=== PATIENT | female | born 1935 | race Caucasian/White ===

== ENCOUNTER 2017-02-15 10:56 | Inpatient (IN) | payer OTHER ==
[2017-02-11 17:27] LABS: HEMOGLOBIN 13.2 g/dL (12.0-16.0)
[2017-02-11 17:44] LABS: BUN (BLOOD UREA NITROGEN) 10 MG/DL (6-23); CALCIUM, SERUM 9.2 MG/DL (8.5-10.4); CHLORIDE, SERUM 106 MMOL/L (96-112); CO2 (CARBON DIOXIDE) 32 MMOL/L (24-34); CREATININE 0.56 MG/DL (0.55-1.02); GFR AFRICAN AMERICAN 101 ML/MIN (>=60); GFR NON AFRICAN AMERICAN 87 ML/MIN (>=60); GLUCOSE, SERUM 86 MG/DL (60-99); SODIUM, SERUM 145 MMOL/L (135-148)
--- NOTE | ~2017-02-15 | OP ---
Record Of Operation [facility] [address] [place]. [address] NAME: VANESSA MATUTE JAdarsh : 34 STATUS : ADM IN PAT#: [id number] AGE: 81 ADM/REG DATE : 02/15/17 MR#: [id number] REPORT SERV DATE: 02/17/17 DICTATED BY: GIBSON CROCKER DATE: 02/16/17 REPORT STATUS : Draft TRANSCRIBED BY: MODL DATE: 02/16/17 DATE OF PROCEDURE: 02/15/2017 PREOPERATIVE DIAGNOSIS: Rectal carcinoma. POSTOPERATIVE DIAGNOSIS: Rectal carcinoma. PROCEDURE: Robotic total laparoscopic abdominoperineal resection. SURGEON: Virginia Crocker M.D. RESIDENT: Chepe Tripp M.D. ANESTHESIA: General. ESTIMATED BLOOD LOSS: 75 mL. INDICATION: Ms Matute is an 81-year-old female with a ductal carcinoma. Options were discussed with her including abdominoperineal resection versus proctectomy with coloanal and diverting ileostomy. The risks including, but not limited to bleeding, infection, heart or lung complications, damage to adjacent organs, including pelvic nodes with their subsequent results, heart and lung complications with her increased risk for pulmonary complications. Possible need for open operation, recuperation among others were discussed with her and consent was given. DESCRIPTION OF PROCEDURE: The patient was taken to the operating room and placed in supine position. General anesthesia was induced. Lower extremities were placed in stirrups and well padded. The abdomen and perineum were prepped and draped. A small incision was made in the right upper quadrant and Ct technique was utilized to place a 12 mm trocar. Insufflation was obtained to 15 mmHg pressure and 8 mm trocars x4 were placed across the mid abdomen at appropriate distance. The patient was then placed in Trendelenburg and tilted to the right and the Xi robot was docked in on the left side with: 1. Trocar, there was a grasper. 2. Fenestrated bipolar grasper. 3. The camera. 4. Scissors. The abdomen was explored and there was no evidence for metastasis. The inferior mesenteric vein was isolated and divided between clips, and the inferior mesenteric artery was identified, as well as the left ureter and the inferior mesenteric artery was divided between clips with 2 on the stay side. I then mobilized further medial to lateral, and then I mobilized the sigmoid recess and then dissected down into the pelvis using a total mesorectal nerve sparing technique; however, anteriorly there was some inflammatory response consistent with the area of the tumor, and therefore, wide anteriorly, but I did not get into the vagina. I continued on to the pelvic floor and then went through the levators just anterior to the coccyx. I then used bipolar cautery and scissors to divide the sigmoid Record Of Operation [facility] [id number] [place]. [address] NAME: VANESSA MATUTE : 34 STATUS : ADM IN PAT#: [id number] AGE: 81 ADM/REG DATE : 02/15/17 MR#: [id number] REPORT SERV DATE: 02/17/17 DICTATED BY: GIBSON CROCKER DATE: 02/16/17 REPORT STATUS : Draft TRANSCRIBED BY: HAY DATE: 02/16/17 mesentery and placed an endoscopic stapler across the junction of the descending and sigmoid colon. The anus had been sewn shut at the initiation of the operation and incision was made and carried into the subcutaneous tissue where I dissected from above and then cautery was utilized to dissect bilaterally and then the specimen was brought out posteriorly and the remainder of the dissection in the anterior plane was performed and the specimen was brought out. The specimen was intact and given to the pathologist to identify the margins. The pelvic floor was closed using 2-0 Vicryl and then also 3-0 Vicryl after obtaining hemostasis. The stoma site was made in the left upper quadrant just cephalad to where it had been managed by the stomal therapy nurse and [place] of skin was removed and a cruciate incision was made in the anterior-posterior rectus at the end of the colon brought out at that site. Then, the right upper quadrant site was closed at the fascia layer with 0 Vicryl, this was done after evacuating pneumoperitoneum after having checked for hemostasis. The other sites which were 8 mm the skin was closed with 3-0 Vicryl and these areas were isolated and the stoma was matured using a Caitlin technique and a 3-0 chromic stitches. The appliance was placed. The patient tolerated the procedure well. NYDIA/HAY Virginia Crocker M.D. / [id number] CC: Collette Vazquez M.D. Marcus Wagner, MD
--- NOTE | ~2017-02-15 | DS ---
Discharge Summary [facility] [address] [place]. [address] NAME: VANESSA MANCERA : 34 STATUS : DIS IN PAT#: [id number] AGE: 81 ADM/REG DATE : 02/15/17 MR#: [id number] REPORT SERV DATE: 03/03/17 DICTATED BY: GIBSON CROCKER DATE: 03/02/17 REPORT STATUS : Draft TRANSCRIBED BY: MODNabila DATE: 03/02/17 Data Collection from hospitalization DISCHARGE DIAGNOSES: 1. Rectal cancer. 2. Hypertension. 3. Sleep apnea. 4. Bronchiectasis. 5. Coronary artery disease. 6. Dyslipidemia. 7. Acid reflux. CONSULTATIONS: Diogo Teresa DO PROCEDURES PERFORMED: Robotic total laparoscopic abdominoperineal resection on 02/15/2017. PATHOLOGY: Rectosigmoid colon, segmental resection - residual invasive colonic adenocarcinoma, status post neoadjuvant therapy. MEDICATIONS: Aspirin 162 mg daily, Tenormin 25 mg every morning, Zithromax 250 mg every morning, Tums one tablet as needed, Citracal one tablet daily, vitamin D3 1000 units twice a day, vitamin B12 1000 mcg sublingually daily, Lomotil as instructed, fluorometholone 5 mL as instructed, glucosamine chondroitin one tablet twice a day, Combivent one puff via inhaler as needed, Prinivil 10 mg every morning, Imodium 2 mg as needed, Prilosec 40 mg every evening, Anoro Ellipta one inhalation every morning, and multivitamins every morning as instructed. CONDITION AT DISCHARGE: Stable. DISPOSITION: The patient was discharged home to be followed by home health care on a regular diet with activities as instructed. She would follow up with me on 03/04/2017. HOSPITAL COURSE: This is an 81-year-old female who has rectal carcinoma. Treatment options were discussed and it was elected to proceed with surgical intervention. She was admitted to the hospital at this time for further evaluation and treatment. Upon admission, she was taken to the operating room where she underwent the above-mentioned procedure. She tolerated this well, and there were no complications. On postop day #1, she had no new complaints. She said her bottom was sore. She was not taking her pain medication. ERAS protocol was in place. She was seen by Dr. Diogo Teresa. Her surgery had gone well and she does have some postoperative soreness and pain. She was not having any respiratory difficulty or chest pain. She had no cough. She does see Dr. Porter as an outpatient for bronchiectasis, which she said she got after having pneumonia. She is on outpatient Anoro as well as azithromycin and was doing well. She had requested this consult because she was afraid of getting pneumonia again. She is not on daytime oxygen, but she is on 3 to 4 liters/minute at the current time. CT scan of the chest in August of 2016 showed a tiny 3 mm nodule in the right upper lobe that had been stable with no other additional pulmonary nodules noted. There were no pleural effusions or fibrosis. The rest of the CT Discharge Summary [address] [address] NAME: VANESSA MANCERA : 34 STATUS : DIS IN PAT#: [id number] AGE: 81 ADM/REG DATE : 02/15/17 MR#: [id number] REPORT SERV DATE: 03/03/17 DICTATED BY: GIBSON CROCKER DATE: 03/02/17 REPORT STATUS : Draft TRANSCRIBED BY: HAY DATE: 03/02/17 scan of the chest, abdomen, and pelvis have shown presacral lymph node and no evidence of distant metastatic disease. He agreed with early mobilization and incentive spirometry and DVT prophylaxis. Chest x-ray was requested. Anoro and azithromycin were continued. She would be placed on DuoNeb as needed. On 02/18/2017, she was doing well. She was ambulatory. She was not eating much. Her abdomen was soft. Ensure was being given with meals. Over the next couple of days, discharge planning was performed. She underwent ostomy teaching. She said she felt comfortable. She was tolerating a regular diet. White count was 5.6. Discharge planning was performed. On 02/20/2017, discharge instructions were given. Due to her improved and stable condition, she was discharged home to be followed by home health care with the above-stated instructions. Information collected by: Amaris Mccauley I submit the above information as my discharge summary. ERNIE/HAY Virginia Crocker M.D. / [id number] CC: Collette Vazquez M.D.
--- NOTE | ~2017-02-15 | CN ---
Consultation Report [facility] [address] [place]. [address] NAME: VANESSA MANCERA : 34 STATUS : ADM IN PAT#: [id number] AGE: 81 ADM/REG DATE : 02/15/17 MR#: [id number] REPORT SERV DATE: 02/16/17 DICTATED BY: DIOGO TERESA DATE: 02/16/17 REPORT STATUS : Draft TRANSCRIBED BY: MODL DATE: 02/16/17 DATE OF CONSULTATION: HISTORY OF PRESENT ILLNESS: This 81-year-old white female admitted 02/15/2017, for an abdominoperineal resection of a rectal cancer by Dr. Joyner. The patient was diagnosed back on 08/20/2016 via biopsy showing adenocarcinoma and had subsequent neoadjuvant chemotherapy by Dr. Fajardo and Dr. Maldonado. She presented yesterday to have the resection done. Surgery went well, and she just had some postop soreness/pain. She is not having any respiratory difficulty or chest pain and no cough. She sees Dr. Porter as an outpatient for bronchiectasis which she states that she got after pneumonia. She is on outpatient Anoro as well as azithromycin and doing well. The patient requested the consult because she is afraid of getting pneumonia again. She is not on any daytime oxygen, but she is on 3 to 4 L/minute currently. REVIEW OF SYSTEMS: No fevers, chills, or sweats. No chest pain. Has a little bit of abdominal soreness. Does have an ostomy. No rashes or leg swelling or joint discomfort. PAST MEDICAL HISTORY: Rectal cancer, coronary artery disease, CABG [address] Contreras, dyslipidemia, hypertension, bronchiectasis, history of pneumonia, obstructive sleep apnea, intolerant of BiPAP, and acid reflux. ALLERGIES: PROCAINE AND ASPARTAME. OUTPATIENT MEDICATIONS: Reviewed. PAST SURGICAL HISTORY: Colonoscopy, CABG, and rectal cancer surgery as above. SOCIAL HISTORY: No tobacco, alcohol. The patient is . FAMILY HISTORY: Mother, heart attack. Siblings, lupus. LABORATORY DATA: Labs reviewed. DIAGNOSTIC DATA: Radiology films reviewed. She did have a CT scan of her chest back in 09/01/2016, showing a tiny 3 mm nodule in the right upper lobe that has been stable with no other additional pulmonary nodules noted. No pleural effusions or fibrosis. The rest of the CT of the chest, abdomen, and pelvis showed a presacral lymph node, and no evidence of distant metastatic disease. ASSESSMENT AND PLAN: 1. Hypoxia. 2. Atelectasis, suspected. 3. History of bronchiectasis. 4. Rectal cancer, status post, abdominoperineal resection, postop day #1. Consultation Report [facility] [address] [place]. [address] NAME: VANESSA MANCERA : 34 STATUS : ADM IN PAT#: [id number] AGE: 81 ADM/REG DATE : 02/15/17 MR#: [id number] REPORT SERV DATE: 02/16/17 DICTATED BY: DIOGO TERESA DATE: 02/16/17 REPORT STATUS : Draft TRANSCRIBED BY: HAY DATE: 02/16/17 I agree with early mobilization, incentive spirometry, and DVT prophylaxis. We will check a chest x-ray. Goal O2 saturation 92% to 94%. Continue Anoro and azithromycin. On DuoNeb as needed. We will follow. CEP/MODL Diogo Teresa DO / [id number] CC: Collette Vazquez M.D.
[~2017-02-15 10:56] MED LIST: ADVAIR250 INH; ANOROELLIPTA INH; ASAB PO; ATEN25 PO; BEN25 PO; CALTRA600D PO; CALTRAT600 PO; CITRACAL PO; COMBIVENT RESPIM4 GM INH; CRESTOR20 MG PO; FISH-EPA1000 MG PO; FLUCON1 PO; FML OPH SUSP5 ML OPH; GLUCCHONDR PO; IMOD PO; LIPITOR40 PO; LOM PO; Multivitamin Tab PO; NEXIUM40 PO; NIACIN FLUSH FREE PO; NIACIN TR1000 MG PO; PREDFORTE OPH; PRILOSEC40 MG PO; PRIN5 PO; PROVHFA INH; THERAPEUTIC PO; TUMSROLL PO; VITAMIN B-121000 MC1 SL; VITAMIN D1000 UNI1 PO; VITAMIN D31000 UNIT PO; ZITH250 PO
[2017-02-16 06:24] LABS: BASOPHILS 0 %; EOSINOPHILS 0 %; HEMOGLOBIN 11.3 g/dL (12.0-16.0); IMMATURE GRANULOCYTES 0.3 %; IMMATURE GRANULOCYTES ABSOLUTE 0.02 10/3/uL (0.0-0.11); LYMPHOCYTES 11.7 %; LYMPHOCYTES ABSOLUTE 0.71 10/3/uL (0.67-4.30); MEAN CORPUS HGB CONC 33.2 g/dL (32.0-36.0); MEAN PLATELET VOLUME 9.2 fL (9.2-13.0); MONOCYTES 6.8 %; MONOCYTES ABSOLUTE 0.41 10/3/uL (0.21-1.20); NEUTROPHILS 81.2 %; NEUTROPHILS ABSOLUTE 4.93 10/3/uL (2.02-8.40); PLATELET COUNT 176 10/3/uL (150-400); RBC DISTRIBUTION WIDTH 13.1 % (12.0-16.0); WHITE BLOOD CELLS 6.1 10/3/uL (4.5-10.5)
[2017-02-16 06:25] LABS: MANUAL DIFF NO %; MEAN CORPUSCULAR HEMOGLOB 34.5 pg (26.0-34.0); MEAN CORPUSCULAR VOLUME 103.7 fL (80-100); RED CELL COUNT 3.28 10/6/uL (4.0-5.6)
[2017-02-16 06:35] LABS: CALCIUM, SERUM 8.5 MG/DL (8.5-10.4); CHLORIDE, SERUM 107 MMOL/L (96-112); CO2 (CARBON DIOXIDE) 30 MMOL/L (24-34); CREATININE 0.53 MG/DL (0.55-1.02); GFR AFRICAN AMERICAN 102 ML/MIN (>=60); GFR NON AFRICAN AMERICAN 88 ML/MIN (>=60); SODIUM, SERUM 144 MMOL/L (135-148)
[2017-02-16 06:38] LABS: BUN (BLOOD UREA NITROGEN) 5 MG/DL (6-23); GLUCOSE, SERUM 124 MG/DL (60-99)
[2017-02-19 06:55] LABS: BASOPHILS 0.2 %; BASOPHILS ABSOLUTE 0.01 10/3/uL (0.0-0.16); EOSINOPHILS 4.1 %; EOSINOPHILS ABSOLUTE 0.23 10/3/uL (0.0-0.53); HEMATOCRIT 31.8 % (36.0-48.0); HEMOGLOBIN 10.7 g/dL (12.0-16.0); IMMATURE GRANULOCYTES 0.4 %; IMMATURE GRANULOCYTES ABSOLUTE 0.02 10/3/uL (0.0-0.11); LYMPHOCYTES 14.1 %; LYMPHOCYTES ABSOLUTE 0.79 10/3/uL (0.67-4.30); MANUAL DIFF NO %; MEAN CORPUS HGB CONC 33.6 g/dL (32.0-36.0); MEAN CORPUSCULAR HEMOGLOB 34.9 pg (26.0-34.0); MEAN CORPUSCULAR VOLUME 103.6 fL (80-100); MEAN PLATELET VOLUME 9.3 fL (9.2-13.0); MONOCYTES 6.8 %; MONOCYTES ABSOLUTE 0.38 10/3/uL (0.21-1.20); NEUTROPHILS 74.4 %; NEUTROPHILS ABSOLUTE 4.19 10/3/uL (2.02-8.40); PLATELET COUNT 189 10/3/uL (150-400); RBC DISTRIBUTION WIDTH 13.5 % (12.0-16.0); RED CELL COUNT 3.07 10/6/uL (4.0-5.6); WHITE BLOOD CELLS 5.6 10/3/uL (4.5-10.5)
[2017-02-19 07:05] LABS: CHLORIDE, SERUM 104 MMOL/L (96-112); CO2 (CARBON DIOXIDE) 29 MMOL/L (24-34); CREATININE 0.47 MG/DL (0.55-1.02); GFR AFRICAN AMERICAN 107 ML/MIN (>=60); GFR NON AFRICAN AMERICAN 92 ML/MIN (>=60); GLUCOSE, SERUM 114 MG/DL (60-99); POTASSIUM, SERUM 3.7 MMOL/L (3.5-5.3); SODIUM, SERUM 142 MMOL/L (135-148)
[2017-02-19 07:06] LABS: BUN (BLOOD UREA NITROGEN) 10 MG/DL (6-23)
== END 2017-02-20 15:52 | disposition home or self-care (01) | DRG 330 ==
LOC: SDC/OF 10:56 → PACU 18:49 → 5SO 21:14
PROVIDERS: Colon & Rectal Surgery
PROC: 0DBN4ZZ Excision of Sigmoid Colon, Percutaneous Endoscopic Approach (ICD-10-PCS; 2017-02-15)
PROC: 0DBQ3ZZ Excision of Anus, Percutaneous Approach (ICD-10-PCS; 2017-02-15)
PROC: 0D1N474 Bypass Sigmoid Colon to Cutaneous with Autologous Tissue Substitute, Percutaneous Endoscopic Approach (ICD-10-PCS; 2017-02-15)
PROC: 8E0W4CZ Robotic Assisted Procedure of Trunk Region, Percutaneous Endoscopic Approach (ICD-10-PCS; 2017-02-15)
PROC: 0DTP4ZZ Resection of Rectum, Percutaneous Endoscopic Approach (ICD-10-PCS; principal; 2017-02-15 12:00)
DX: C20 Malignant neoplasm of rectum (principal); J98.11 Atelectasis; Z95.1 Presence of aortocoronary bypass graft; K92.1 Melena; F22 Delusional disorders; I25.10 Atherosclerotic heart disease of native coronary artery without angina pectoris; K44.9 Diaphragmatic hernia without obstruction or gangrene; Z88.8 Allergy status to other drugs, medicaments and biological substances; Z79.82 Long term (current) use of aspirin; Z79.899 Other long term (current) drug therapy; I10 Essential (primary) hypertension; Z82.49 Family history of ischemic heart disease and other diseases of the circulatory system
CPT/HCPCS: 71010; 80048; 85014; 85018; 85025; 88309; 88341; 88342; 93005; 94640; A9270-GY; J0690; J2250; J2405; J2710; J2795; J3010; P9045

== ENCOUNTER 2017-03-03 13:25 | Inpatient (IN) | payer OTHER ==
--- NOTE | ~2017-03-03 | DS ---
Discharge Summary [facility] [address] [place]. [address] NAME: VANESSA MANCERA : 34 STATUS : DIS IN PAT#: [id number] AGE: 81 ADM/REG DATE : 03/03/17 MR#: [id number] REPORT SERV DATE: 03/19/17 DICTATED BY: GIBSON CROCKER DATE: 03/18/17 REPORT STATUS : Draft TRANSCRIBED BY: HAY DATE: 03/18/17 Data Collection from hospitalization DISCHARGE DIAGNOSES: 1. History of abdominoperineal resection. 2. Pneumonia. 3. Respiratory failure. 4. Hypertension. 5. History of colon cancer. 6. Coronary artery disease. 7. Large hiatal hernia. 8. Symptomatic gastroesophageal reflux. 9. Enterococcus faecalis urinary tract infection. 10.Obstructive sleep apnea. CONSULTATIONS: 1. Fredy Tariq M.D. 2. Thuan Porter M.D. 3. [place] De Leon. PROCEDURES PERFORMED: None. DISPOSITION: [facility]. HOSPITAL COURSE: This was an 81-year-old female who had undergone abdominoperineal resection two weeks prior to this admission. She was doing well until approximately five days prior to admission at which time, she began to have increased weakness, decreased appetite, and eventually developed nausea and vomiting. On Wednesday and Wednesday prior to admission, she had intravenous fluids and correction of electrolytes as an outpatient. She continued to have weakness and complained of some vomiting on the morning of this admission as well as burping. She also had some dark brown emesis and said that she had decreased output, although she continued to have air in the stoma bag with somewhat more clear fluid. She did not feel particularly bloated and did not feel like she was very short of breath, although she was getting weaker and had difficulty walking without help. She was admitted to the hospital at this time for further evaluation and treatment. Upon admission, it was felt that she may have an element of heart failure. She was felt to be dehydrated. The following day, she had no nausea or vomiting. She did complain of some back pain. There was air in her appliance. Urinalysis had revealed a urinary tract infection. Her diet was going to be advanced. Antibiotics were started. She was evaluated by Physical Therapy. On 03/05/2017, her wheezing had increased. White blood cell count was 16. She was afebrile. She did have wheezing in both lungs. On 03/06/2017, she did not have much oral intake. We encouraged her to use incentive spirometry. She was seen by Dr. Fredy Tariq regarding shortness of breath. The patient was felt to have hypoxic respiratory failure. She was felt to be volume overloaded without congestive heart failure. IV fluids were discontinued. The patient was on extended infusion of Zosyn, which provides a lot of volume as well. The Enterococcus was sensitive to amoxicillin and she was changed to oral amoxicillin three times a day. Zosyn was discontinued. Procalcitonin level was Discharge Summary [address] [place]. [address] NAME: VANESSA MANCERA : 34 STATUS : DIS IN PAT#: [id number] AGE: 81 ADM/REG DATE : 03/03/17 MR#: [id number] REPORT SERV DATE: 03/19/17 DICTATED BY: GIBSON CROCKER DATE: 03/18/17 REPORT STATUS : Draft TRANSCRIBED BY: AHY DATE: 03/18/17 going to be checked as well as ABGs and portable chest x-ray. Routine labs would again be performed the following morning. She was going to be started on DuoNebs with EzPAP. She was started on Pulmicort with EzPAP. Routine BNP would be checked. We would wean O2 to keep saturation greater than 92%. A dose of IV Lasix was given. On 03/07/2017, she still had some wheezing. We encouraged her to mobilize. She was seen by Dr. Thuan Porter. She was well known to his practice. She was followed in the office for her chronic obstructive pulmonary disease associated with bronchiectasis. She recently had extensive resection of a colorectal adenocarcinoma. She did well and went home, but had developed worsening nausea, vomiting, and then became dehydrated. She had started having more dyspnea, coughing, and chest congestion. She had no substernal chest pain and has not had much sputum production. She was felt to have acute worsening of bronchiectasis. She was given a dose of systemic steroids. We were going to try her on flutter valve. Lisinopril was held. On 03/08/2017, she did not tolerate BiPAP well during the night. She still had a weak rattling cough. Chest x-ray showed increased left-sided infiltrate. Urine had been positive for Enterococcus. She was now on Vapotherm. The patient was a DNR code status. She was seen by Cheryl Benson regarding acute kidney injury. She had developed worsening shortness of breath, which had progressed. It was felt that she probably had aspirated and had aspiration pneumonia. She had gotten progressively more hypoxic over the last 24 hours. She had also developed some hypotension and now had significant decreased urine output and creatinine had risen to 1.4. She still had significant respiratory distress. Her bilateral pneumonia was actually worse on the left than the right. She was felt to have acute kidney injury and was now oliguric. The acute kidney injury was felt to be in the setting of acute hypoxic respiratory failure and hypotension. It was suspected that this was ATN as she was now oliguric. Bladder scan was negative. We were going to give her diuretic challenge. The patient was a DNR code status and the patient's family felt she was too weak for renal replacement therapy at this time and we agreed on this. We would reassess urine output and labs the following morning and expected kidney function to worsen. Urine studies would be obtained. The next day, her breathing was labored. She had coarse breath sounds bilaterally. White blood cell count was 10,000. Creatinine was 1.2. She did have some increased work of breathing. She did have some emesis during the night. Chest x-ray showed worsening infiltrates. Her respiratory status continued to worsen. In the animal sticker hours of 03/10/2017, she was found without blood pressure, pulse, or respirations. She was pronounced at 6:50 a.m. and released to the above-mentioned home. Information collected by: Amaris Mccauley I submit the above information as my discharge summary. ERNIE/MODL Virginia Crocker M.D. / [id number] CC: Discharge Summary [address] [address] NAME: VANESSA MANCERA0 : 34 STATUS : DIS IN PAT#: [id number] AGE: 81 ADM/REG DATE : 03/03/17 MR#: [id number] REPORT SERV DATE: 03/19/17 DICTATED BY: GIBSON CROCKER DATE: 03/18/17 REPORT STATUS : Draft TRANSCRIBED BY: HAY DATE: 03/18/17 Collette Vazquez M.D. Jessica Craig, FNP
--- NOTE | ~2017-03-03 | CN ---
Consultation Report [facility] [address] [place]. [address] NAME: VANESSA MANCERA : 34 STATUS : ADM IN PAT#: [id number] AGE: 81 ADM/REG DATE : 03/03/17 MR#: [id number] REPORT SERV DATE: 03/06/17 DICTATED BY: FREDY TARIQ DATE: 03/06/17 REPORT STATUS : Draft TRANSCRIBED BY: MODL DATE: 03/06/17 DATE OF CONSULTATION: 03/06/2017 REASON FOR CONSULTATION: Shortness of breath. IMPRESSION: 1. Hypoxic respiratory failure. 2. Volume overload without congestive heart failure. 3. Enterococcus faecalis urinary tract infection. 4. History of bronchiectasis. 5. Hypertension. 6. Coronary artery disease. 7. Colon cancer, status post chemoradiation and now surgery with a colostomy. 8. Large hiatal hernia with symptomatic gastroesophageal reflux. PLAN: We will discontinue IV fluids at this time. This patient is on extended infusion of Zosyn which provides a lot of volume as well. Since the Enterococcus is sensitive to amoxicillin, we will change to p.o. amoxicillin three times daily and discontinue Zosyn. We will obtain a stat portable chest x-ray. Check a stat ABG. Check Procalcitonin level on blood in the lab today. We will check routine labs again in the morning. Start the patient on DuoNebs every four hours with EzPAP. Start the patient on Pulmicort one neb twice daily with EzPAP. We will check a routine BNP on blood in the lab. Wean O2 to keep saturation greater than 92%. Give Lasix 40 mg tab one dose IV x1. We thank you for this consultation and we will continue to follow with you BRIEF HISTORY OF PRESENT ILLNESS: The patient is an 81-year-old white female, who is admitted to the Colorectal Surgery Service for what appears to be colon cancer. The patient underwent a laparoscopic-assisted resection of the rectal carcinoma, abdominal peritoneal resection with a colostomy. This patient did well postoperatively. Her colostomy now is functional. This patient is tolerating a diet, but she has had persistent shortness of breath. She is not wheezing. She has a cough that is nonproductive. She denies any fever, chills, nausea, or vomiting. She denies any chest pain. Medicine Service was asked to see this patient because the patient was requiring high amounts of oxygen as much as 5 L. This patient reports that she has a severe sleep apnea and is unable to tolerate CPAP. She wears normally 2 L of oxygen at night only. REVIEW OF SYSTEMS: Otherwise negative. PAST MEDICAL HISTORY: Significant and extensive for rectal cancer, coronary artery disease, dyslipidemia, hypertension, bronchiectasis, history of pneumonia, severe obstructive sleep apnea, intolerant to BiPAP or CPAP, and gastroesophageal reflux. PAST SURGICAL HISTORY: Significant for CABG in 2005, cataract surgery, bilateral corneal transplant. Consultation Report [place] [id number] [facility] [place]. [address] NAME: VANESSA MANCERA : 34 STATUS : ADM IN PAT#: [id number] AGE: 81 ADM/REG DATE : 03/03/17 MR#: [id number] REPORT SERV DATE: 03/06/17 DICTATED BY: FREDY TARIQ DATE: 03/06/17 REPORT STATUS : Draft TRANSCRIBED BY: HAY DATE: 03/06/17 ALLERGIES: TO PROCAINE, ASPARTAME, AND PRAVASTATIN. HOME MEDICATIONS: DuoNebs one neb every four hours, aspirin 162 mg once daily, Tenormin 25 mg once daily, azithromycin 250 mg daily for prophylaxis of pneumonia, Os-Blaise 500 mg twice daily, vitamin D 1000 units once daily, fluorometholone suspension every 48 hours in the eyes, glucosamine, [place] 5/325 one to two tablets every four hours, lisinopril 10 mg once daily, Centrum multivitamins, Prilosec 40 mg at breakfast, Zofran 8 mg every four hours p.r.n., Anoro Ellipta one inhalation once daily, vitamin B12. SOCIAL HISTORY: This patient denies use of alcohol, tobacco, or illicit substances. Was fully functional in all ADLs prior to this surgery. FAMILY HISTORY: Mother, heart attacks. One sibling with lupus. PHYSICAL EXAMINATION: GENERAL: White female, lying on the bed, appears to be in moderate respiratory distress. She is awake, alert, and oriented, but she does fall asleep in between conversations and is unable to complete sentences because of her shortness of breath. VITAL SIGNS: Blood pressure is 98/49, O2 saturation is 99% on 6 L. pulse is 96. Temp is 98.4. HEENT: Head is normocephalic, atraumatic. Pupils are equal, round, and reactive to light. Extraocular muscles are intact. Sclerae are anicteric. Conjunctivae normal. Oropharynx without lesion. Tongue protrusion is midline. Uvula is midline. NECK: Supple. No evidence of jugular venous distention. No carotid bruits or thyromegaly is appreciated. No lymphadenopathy in the neck is palpable. HEART: Distant. Tachycardic. 2/6 soft systolic murmur, best heard second intercostal space, left parasternal border. PMI nondisplaced. LUNGS: Diffuse crackles with rhonchis, wheezing, worse with expiration. No evidence of any focal consolidation. ABDOMEN: Colostomy in place. Liquid stool in the bag. Bowel sounds are present. Surgical wounds are clean and dry. Slight bruising is noted on the abdomen from what appears to be injections of anticoagulation for DVT prophylaxis. EXTREMITIES: Without cyanosis, clubbing, or edema. NEUROLOGICAL: Seems to be grossly intact. LABORATORY DATA: Most recent labs, electrolytes are completely normal. BUN is 45 creatinine is 0.71, glucose was 156. Her BNP was done on 03/03/2017 and it was 57. Her white count is 15.9, her hemoglobin is 10.3, her hematocrit is 37, platelet count is 486,000. There is no left shift. Urinalysis and urine culture positive for Enterococcus faecalis sensitive to penicillin. Portable chest x-ray has been ordered. There was a PA and a lateral chest x- ray done yesterday showing blunting of the costophrenic angles consistent with subsegmental basilar atelectasis versus small effusions. Once again, we thank you for this consultation and we will follow the patient with you. Consultation Report [place] [id number] [facility] [place]. [address] NAME: VANESSA MANCERA0 : 34 STATUS : ADM IN [facility]#: [id number] AGE: 81 ADM/REG DATE : 03/03/17 MR#: [id number] REPORT SERV DATE: 03/06/17 DICTATED BY: FREDY TARIQ DATE: 03/06/17 REPORT STATUS : Draft TRANSCRIBED BY: HAY DATE: 03/06/17 SV/HAY Fredy Tariq M.D. / [id number] CC: Virginia Joyner M.D.
--- NOTE | ~2017-03-03 | CN ---
Consultation Report [facility] [address] [place]. [address] NAME: VANESSA MATUTE : 34 STATUS : ADM IN PAT#: [id number] AGE: 81 ADM/REG DATE : 03/03/17 MR#: [id number] REPORT SERV DATE: 03/08/17 DICTATED BY: DATE: REPORT STATUS : Draft TRANSCRIBED BY: MODL DATE: 03/08/17 CONSULTATION DATE OF CONSULTATION: REASON FOR CONSULTATION: Acute kidney injury. CONSULTING PHYSICIAN: Dr. Tariq. HISTORY OF PRESENT ILLNESS: Ms. Matute is an 81-year-old white female with a history of colon cancer. She had surgery late last month and colostomy. She presented back to the hospital with abdominal pain, nausea, treated for UTI, antibiotics, and her creatinine has been normal around 0.5 to 0.7 during the early part of her admission. Yesterday, she developed worsening shortness of breath. It has progressed. It is now felt that she probably has aspirated and has aspiration pneumonia. She has gotten progressively more hypoxic over the last 24 hours. She has also developed some hypotension as well and now has significant decreased urine output and creatinine is up to 1.4. We have been asked to see her. She still has significant respiratory distress. PAST MEDICAL HISTORY: COPD, bronchiectasis, colorectal cancer, adenocarcinoma, colostomy, reflux, obstructive sleep apnea, coronary artery disease, status post bypass. SOCIAL HISTORY: No tobacco, alcohol, or illicit drug use. FAMILY MEDICAL HISTORY: Cannot obtain from patient given her current respiratory distress. ALLERGIES: PROCAINE, ASPARTAME, AND PRAVASTATIN. MEDICATIONS: At time of consultation: Amoxicillin, Tenormin, Zithromax, glucosamine, heparin, Protonix, and Anoro Ellipta. REVIEW OF SYSTEMS: Unable to obtain from patient given her current respiratory status. PHYSICAL EXAMINATION: VITAL SIGNS: Temp 98.3, blood pressure 117/53, pulse 100, respiratory rate 30, O2 saturation 93% on Vapotherm. GENERAL: This is an ill-appearing, elderly white female. She will open her eyes and say a few words. Otherwise, minimally responsive. HEENT: Normocephalic, atraumatic. Conjunctivae clear. Sclerae anicteric. Pupils are equal and round. Oral mucosa is extremely dry. She has brown matter in her mouth. RESPIRATIONS: Slightly labored. She has rhonchi noted throughout. HEART: Rate is regular, but increased. ABDOMEN: Soft. She has colostomy to left side of the abdomen with brown stool. Consultation Report [place] [id number] [place]. [id number] NAME: VANSESA MATUTE : 34 STATUS : ADM IN PAT#: [id number] AGE: 81 ADM/REG DATE : 03/03/17 MR#: [id number] REPORT SERV DATE: 03/08/17 DICTATED BY: DATE: REPORT STATUS : Draft TRANSCRIBED BY: MODL DATE: 03/08/17 EXTREMITIES: No edema. SKIN: Dry, scaly. No unusual rash or skin lesions. NEURO: No focal deficits. Mood and affect flat. PERTINENT LABS AND X-RAYS: Procalcitonin 1, sodium 145, potassium 3.3, chloride 111, CO2 of 21, BUN of 81, creatinine 1.4, calcium 7.7, albumin of 2.1. WBCs 8.7, H and H are 8 and 25, platelets 340,000. Her chest x-ray, she has what is supposed to be bilateral pneumonia, but actually the left worse than the right. IMPRESSION: 1. Acute kidney injury, now oliguric. 2. Acute respiratory failure. 3. Hypotension. 4. Urinary tract infection. 5. Aspiration pneumonia. 6. Colon cancer with colostomy. PLAN/RECOMMENDATION: Acute kidney injury in the setting of acute hypoxic respiratory failure and hypotension. Suspect this is ATN as she is now oliguric. Bladder scan is negative. We will give her diuretic challenge. Discussed with the patient's daughter, she is a DNR and they feel she is too weak for renal replacement therapy at this time and I agree. We will reassess urine output and labs in a.m. and expect kidney function to worsen. We will check urine studies. Follow urine output and follow along with you. Thank you for the consultation. EITAN ALEXANDRIA De Leon / [id number]
--- NOTE | ~2017-03-03 | CN ---
Consultation Report [facility] [address] [place]. [address] NAME: VANESSA MATUTE J0 : 34 STATUS : ADM IN PAT#: [id number] AGE: 81 ADM/REG DATE : 03/03/17 MR#: [id number] REPORT SERV DATE: 03/07/17 DICTATED BY: ALEJANDRINA PORTER DATE: 03/07/17 REPORT STATUS : Draft TRANSCRIBED BY: MODL DATE: 03/07/17 DATE OF CONSULTATION: Thank you for the opportunity to consult on this patient. HISTORY OF PRESENT ILLNESS: Ms. Matute is well known to our practice. I follow her in the office for her chronic obstructive lung disease associated with bronchiectasis. She had recently had extensive resection of a colorectal adenocarcinoma. She did well, went home, but had developed some worsening nausea, vomiting and became dehydrated. She was admitted for treatment of her dehydration and has done fairly well, but has started having more dyspnea, coughing, and chest congestion. She has had no substernal chest pain and has not had much sputum production. PAST MEDICAL HISTORY: Significant for bronchiectasis with quite significant chronic obstructive lung disease. SOCIAL HISTORY: Negative for tobacco abuse. FAMILY HISTORY: Noncontributory to this acute presentation. REVIEW OF SYSTEMS: Review of 10 systems was performed and is positive for what was noted above. PHYSICAL EXAMINATION: GENERAL: She is awake and alert with quite significant audible rhonchi. NECK: Supple with no lymphadenopathy and no JVD. CHEST: Symmetric with good expansion bilaterally. LUNGS: Have bilateral rhonchi, but no clear wheezing. CARDIOVASCULAR: She has S1 and S2, which are regular rate and rhythm. ABDOMEN: Benign. EXTREMITIES: She has no edema, no clubbing, no cyanosis. ASSESSMENT AND PLAN: Acute worsening of bronchiectasis. The patient had been dehydrated and now is being rehydrated, so we agree with the additional dose of Lasix. We have given her dose of systemic steroids, and we will try her on flutter valve. Dr. Tariq has already started her on EzPAP, which should also help her expand her lungs a little bit more, and this does not appear to be a pneumonia. We will continue to monitor her with you. Please do not hesitate to contact me if I could be of any further assistance. RAFI/HAY Alejandrina Porter M.D. Consultation Report [address] [place]. [address] NAME: VANESSA MATUTE : 34 STATUS : ADM IN PAT#: [id number] AGE: 81 ADM/REG DATE : 03/03/17 MR#: [id number] REPORT SERV DATE: 03/07/17 DICTATED BY: ALEJANDRINA PORTER DATE: 03/07/17 REPORT STATUS : Draft TRANSCRIBED BY: MODL DATE: 03/07/17 / [id number] CC: Virginia Joyner M.D.
[2017-03-03 17:01] LABS: HEMATOCRIT 32.5 % (36.0-48.0); HEMOGLOBIN 10.9 g/dL (12.0-16.0); MEAN CORPUS HGB CONC 33.5 g/dL (32.0-36.0); MEAN CORPUSCULAR HEMOGLOB 33.5 pg (26.0-34.0); MEAN PLATELET VOLUME 9.2 fL (9.2-13.0); RBC DISTRIBUTION WIDTH 13.7 % (12.0-16.0); RED CELL COUNT 3.25 10/6/uL (4.0-5.6)
[2017-03-03 17:02] LABS: MANUAL DIFF YES %; PLATELET COUNT 450 10/3/uL (150-400); WHITE BLOOD CELLS 25.9 10/3/uL (4.5-10.5)
[2017-03-03 17:16] LABS: ALKALINE PHOSPHATASE 69 U/L (45-117); CALCIUM, SERUM 9.4 MG/DL (8.5-10.4); CHLORIDE, SERUM 106 MMOL/L (96-112); CO2 (CARBON DIOXIDE) 28 MMOL/L (24-34); CREATININE 0.66 MG/DL (0.55-1.02); GFR AFRICAN AMERICAN 95 ML/MIN (>=60); GFR NON AFRICAN AMERICAN 82 ML/MIN (>=60); PHOSPHORUS, SERUM 2.3 MG/DL (2.5-4.5); POTASSIUM, SERUM 4.1 MMOL/L (3.5-5.3); SGOT(AST) 26 U/L (5-40); SGPT(ALT) 28 U/L (5-65); SODIUM, SERUM 144 MMOL/L (135-148); TOTAL BILIRUBIN 0.6 MG/DL (0-1.2)
[2017-03-03 17:20] LABS: A/G RATIO 0.6 (0.7-1.9); ALBUMIN 2.1 G/DL (3.5-5.0); BUN (BLOOD UREA NITROGEN) 29 MG/DL (6-23); GLOBULIN 3.7 G/DL (2.5-4.1); GLUCOSE, SERUM 191 MG/DL (60-99); TOTAL PROTEIN 5.8 G/DL (6.0-8.5)
[2017-03-03 17:38] LABS: MONOCYTES 7 %; MONOCYTES ABSOLUTE (CALC) 1.81 10/3/uL (0.21-1.20); NEUTROPHILS ABSOLUTE (CALC) 24.09 10/3/uL (2.02-8.40); PLATELET ESTIMATE SLT INC (ADEQUATE); SEGMENTED NEUTROPHIL (0) 93 %; TOTAL NUCLEATED CELLS 100
[2017-03-03 17:39] LABS: MACROCYTES 1+ (5-10/OIF) (0-5/OIF)
[2017-03-03 17:44] LABS: BASOPHILIC STIPPLING 1+ (2-5/OIF) (0-1/OIF); POLYCHROMASIA 1+ (2-5/OIF) (0-1/OIF)
[2017-03-03 21:58] LABS: ASCORBIC ACID (UR NOT ORDER) NEG (NEG); BILIRUBIN, URINE NEGATIVE (NEG); KETONE, URINE TRACE MG/DL (NEG); LEUKOCYTE ESTERASE(NOT OR MOD (NEG); WBC (NOT ORDERED) (RFLEX) 48 (0-5)
[2017-03-04 04:27] LABS: BASOPHILS 0 %; BASOPHILS ABSOLUTE 0.01 10/3/uL (0.0-0.16); EOSINOPHILS 0 %; HEMOGLOBIN 10.9 g/dL (12.0-16.0); IMMATURE GRANULOCYTES 0.4 %; IMMATURE GRANULOCYTES ABSOLUTE 0.09 10/3/uL (0.0-0.11); LYMPHOCYTES 3.6 %; LYMPHOCYTES ABSOLUTE 0.76 10/3/uL (0.67-4.30); MEAN CORPUSCULAR HEMOGLOB 33.7 pg (26.0-34.0); MEAN CORPUSCULAR VOLUME 102.2 fL (80-100); MEAN PLATELET VOLUME 9.3 fL (9.2-13.0); MONOCYTES 2.9 %; MONOCYTES ABSOLUTE 0.61 10/3/uL (0.21-1.20); NEUTROPHILS 93.1 %; NEUTROPHILS ABSOLUTE 19.71 10/3/uL (2.02-8.40); PLATELET COUNT 494 10/3/uL (150-400); RBC DISTRIBUTION WIDTH 13.6 % (12.0-16.0); RED CELL COUNT 3.23 10/6/uL (4.0-5.6); WHITE BLOOD CELLS 21.2 10/3/uL (4.5-10.5)
[2017-03-04 04:30] LABS: MANUAL DIFF NO %
[2017-03-04 04:38] LABS: A/G RATIO 0.6 (0.7-1.9); ALBUMIN 2.1 G/DL (3.5-5.0); ALKALINE PHOSPHATASE 65 U/L (45-117); BUN (BLOOD UREA NITROGEN) 32 MG/DL (6-23); CHLORIDE, SERUM 107 MMOL/L (96-112); CO2 (CARBON DIOXIDE) 29 MMOL/L (24-34); GFR AFRICAN AMERICAN 98 ML/MIN (>=60); GFR NON AFRICAN AMERICAN 85 ML/MIN (>=60); GLOBULIN 3.7 G/DL (2.5-4.1); GLUCOSE, SERUM 228 MG/DL (60-99); PHOSPHORUS, SERUM 2.5 MG/DL (2.5-4.5); POTASSIUM, SERUM 4.2 MMOL/L (3.5-5.3); SGOT(AST) 43 U/L (5-40); SGPT(ALT) 37 U/L (5-65); SODIUM, SERUM 143 MMOL/L (135-148); TOTAL BILIRUBIN 0.6 MG/DL (0-1.2); TOTAL PROTEIN 5.8 G/DL (6.0-8.5)
[2017-03-04 04:44] LABS: CALCIUM, SERUM 9.2 MG/DL (8.5-10.4)
[2017-03-04] MEDS ORDERED: FML OPH SUSP5 ML OPH (09:13)
[2017-03-04] MEDS ORDERED: NORCO1 TA1 PO (09:13)
[2017-03-04] MEDS ORDERED: DUONEB INH (09:16)
[2017-03-04] MEDS ORDERED: ANOROELLIPTA INH (09:16)
[2017-03-04] MEDS ORDERED: PRILOSEC40 MG PO (09:16)
[2017-03-04] MEDS ORDERED: ATEN25 PO (09:16)
[2017-03-04] MEDS ORDERED: PRIN10 PO (09:17)
[2017-03-04] MEDS ORDERED: ZOFRAN8 PO (09:17)
[2017-03-04] MEDS ORDERED: ASAB PO (09:18)
[2017-03-04] MEDS ORDERED: ZITH250 PO (09:18)
[2017-03-04] MEDS ORDERED: GLUCCHONDR PO (09:20)
[2017-03-04] MEDS ORDERED: CYANOCOBALAMIN PO (09:21)
[2017-03-04] MEDS ORDERED: CENTRUM PO (09:21)
[2017-03-04] MEDS ORDERED: OS500+D PO (09:21)
[2017-03-04] MEDS ORDERED: VITAMIN D1000 UNI1 PO (09:21)
[2017-03-05 03:37] LABS: BASOPHILS 0 %; EOSINOPHILS 0 %; HEMATOCRIT 32.2 % (36.0-48.0); HEMOGLOBIN 10.5 g/dL (12.0-16.0); IMMATURE GRANULOCYTES 0.5 %; IMMATURE GRANULOCYTES ABSOLUTE 0.08 10/3/uL (0.0-0.11); LYMPHOCYTES 3.7 %; LYMPHOCYTES ABSOLUTE 0.61 10/3/uL (0.67-4.30); MEAN CORPUS HGB CONC 32.6 g/dL (32.0-36.0); MEAN CORPUSCULAR HEMOGLOB 33.4 pg (26.0-34.0); MEAN CORPUSCULAR VOLUME 102.5 fL (80-100); MEAN PLATELET VOLUME 9.2 fL (9.2-13.0); MONOCYTES 2.9 %; MONOCYTES ABSOLUTE 0.47 10/3/uL (0.21-1.20); NEUTROPHILS 92.9 %; NEUTROPHILS ABSOLUTE 15.22 10/3/uL (2.02-8.40); PLATELET COUNT 504 10/3/uL (150-400); RBC DISTRIBUTION WIDTH 14.2 % (12.0-16.0); RED CELL COUNT 3.14 10/6/uL (4.0-5.6); WHITE BLOOD CELLS 16.4 10/3/uL (4.5-10.5)
[2017-03-05 03:38] LABS: MANUAL DIFF NO %
[2017-03-05 03:55] LABS: CALCIUM, SERUM 8.5 MG/DL (8.5-10.4); CHLORIDE, SERUM 108 MMOL/L (96-112); CO2 (CARBON DIOXIDE) 27 MMOL/L (24-34); CREATININE 0.75 MG/DL (0.55-1.02); GFR AFRICAN AMERICAN 86 ML/MIN (>=60); GFR NON AFRICAN AMERICAN 74 ML/MIN (>=60); POTASSIUM, SERUM 4.1 MMOL/L (3.5-5.3); SODIUM, SERUM 144 MMOL/L (135-148)
[2017-03-05 03:58] LABS: BUN (BLOOD UREA NITROGEN) 41 MG/DL (6-23); GLUCOSE, SERUM 169 MG/DL (60-99)
[2017-03-06 05:23] LABS: BASOPHILS 0 %; EOSINOPHILS 0 %; HEMATOCRIT 32.1 % (36.0-48.0); HEMOGLOBIN 10.3 g/dL (12.0-16.0); IMMATURE GRANULOCYTES 0.3 %; IMMATURE GRANULOCYTES ABSOLUTE 0.05 10/3/uL (0.0-0.11); LYMPHOCYTES 3.5 %; LYMPHOCYTES ABSOLUTE 0.55 10/3/uL (0.67-4.30); MEAN CORPUS HGB CONC 32.1 g/dL (32.0-36.0); MEAN CORPUSCULAR HEMOGLOB 33.2 pg (26.0-34.0); MEAN CORPUSCULAR VOLUME 103.5 fL (80-100); MEAN PLATELET VOLUME 9.1 fL (9.2-13.0); MONOCYTES ABSOLUTE 0.47 10/3/uL (0.21-1.20); NEUTROPHILS 93.2 %; NEUTROPHILS ABSOLUTE 14.84 10/3/uL (2.02-8.40); PLATELET COUNT 486 10/3/uL (150-400); RBC DISTRIBUTION WIDTH 14.5 % (12.0-16.0); WHITE BLOOD CELLS 15.9 10/3/uL (4.5-10.5)
[2017-03-06 05:26] LABS: MANUAL DIFF NO %
[2017-03-06 05:36] LABS: CHLORIDE, SERUM 109 MMOL/L (96-112); CO2 (CARBON DIOXIDE) 25 MMOL/L (24-34); CREATININE 0.71 MG/DL (0.55-1.02); GFR AFRICAN AMERICAN 92 ML/MIN (>=60); GFR NON AFRICAN AMERICAN 79 ML/MIN (>=60); GLUCOSE, SERUM 156 MG/DL (60-99); POTASSIUM, SERUM 3.5 MMOL/L (3.5-5.3); SODIUM, SERUM 143 MMOL/L (135-148)
[2017-03-06 05:37] LABS: BUN (BLOOD UREA NITROGEN) 45 MG/DL (6-23)
[2017-03-06 16:00] LABS: ALLENS TEST Pos; BE (BASE EXCESS) -2.9 MEQ/L (0 +/- 2.5); CARBOXYHEMOGLOBIN 0.7 % (0-3); DEVICE NC; HCO3 (ACTUAL BICARBONATE) 22.5 MEQ/L (23-27); HEMOBLOGIN CONTENT 10.2 G/DL (12-16); INSTRUMENT SERIAL # 8083; METHEMOGLOBIN 0.3 % (0-3); O2 CONTENT 12.6 VOL% (18-24); PCO2 (CO2 TENSION) 41 MMHG (35-45); PO2 (O2 TENSION) 57 MMHG (79-93); SAMPLE Arterial; pH 7.35 (7.37-7.43)
[2017-03-06 16:48] LABS: PROCALCITONIN 0.25 ng/mL (<0.5)
[2017-03-07 06:21] LABS: BASOPHILS 0 %; EOSINOPHILS 0 %; HEMATOCRIT 32.1 % (36.0-48.0); HEMOGLOBIN 10.5 g/dL (12.0-16.0); IMMATURE GRANULOCYTES 0.3 %; IMMATURE GRANULOCYTES ABSOLUTE 0.04 10/3/uL (0.0-0.11); LYMPHOCYTES 4.4 %; LYMPHOCYTES ABSOLUTE 0.61 10/3/uL (0.67-4.30); MEAN CORPUS HGB CONC 32.7 g/dL (32.0-36.0); MEAN CORPUSCULAR HEMOGLOB 33.7 pg (26.0-34.0); MEAN CORPUSCULAR VOLUME 102.9 fL (80-100); MONOCYTES 3.8 %; MONOCYTES ABSOLUTE 0.53 10/3/uL (0.21-1.20); NEUTROPHILS 91.5 %; NEUTROPHILS ABSOLUTE 12.71 10/3/uL (2.02-8.40); PLATELET COUNT 447 10/3/uL (150-400); RBC DISTRIBUTION WIDTH 14.8 % (12.0-16.0); RED CELL COUNT 3.12 10/6/uL (4.0-5.6); WHITE BLOOD CELLS 13.9 10/3/uL (4.5-10.5)
[2017-03-07 06:22] LABS: MANUAL DIFF NO %
[2017-03-07 06:31] LABS: A/G RATIO 0.5 (0.7-1.9); ALBUMIN 1.9 G/DL (3.5-5.0); ALKALINE PHOSPHATASE 71 U/L (45-117); CALCIUM, SERUM 8.2 MG/DL (8.5-10.4); CHLORIDE, SERUM 110 MMOL/L (96-112); CO2 (CARBON DIOXIDE) 23 MMOL/L (24-34); CREATININE 0.74 MG/DL (0.55-1.02); GFR AFRICAN AMERICAN 87 ML/MIN (>=60); GFR NON AFRICAN AMERICAN 75 ML/MIN (>=60); GLOBULIN 3.7 G/DL (2.5-4.1); GLUCOSE, SERUM 159 MG/DL (60-99); POTASSIUM, SERUM 3.3 MMOL/L (3.5-5.3); SGOT(AST) 21 U/L (5-40); SGPT(ALT) 40 U/L (5-65); SODIUM, SERUM 145 MMOL/L (135-148); TOTAL BILIRUBIN 0.2 MG/DL (0-1.2); TOTAL PROTEIN 5.6 G/DL (6.0-8.5)
[2017-03-07 06:32] LABS: BUN (BLOOD UREA NITROGEN) 55 MG/DL (6-23)
[2017-03-07 11:57] LABS: BE (BASE EXCESS) -1.2 MEQ/L (0 +/- 2.5); CARBOXYHEMOGLOBIN 0.7 % (0-3); DEVICE NC; HCO3 (ACTUAL BICARBONATE) 23.8 MEQ/L (23-27); HEMOBLOGIN CONTENT 10.4 G/DL (12-16); INSTRUMENT SERIAL # 8083; METHEMOGLOBIN 0.3 % (0-3); O2 CONTENT 13.3 VOL% (18-24); PCO2 (CO2 TENSION) 41 MMHG (35-45); PO2 (O2 TENSION) 63 MMHG (79-93); SAMPLE Arterial; pH 7.38 (7.37-7.43)
[2017-03-07 21:10] LABS: ALLENS TEST Pos; BE (BASE EXCESS) -1.1 MEQ/L (0 +/- 2.5); CARBOXYHEMOGLOBIN 0.7 % (0-3); DEVICE NC; HCO3 (ACTUAL BICARBONATE) 23.5 MEQ/L (23-27); HEMOBLOGIN CONTENT 9.9 G/DL (12-16); INSTRUMENT SERIAL # 8083; METHEMOGLOBIN 0.3 % (0-3); O2 CONTENT 12.3 VOL% (18-24); OPERATOR ID 16503; PCO2 (CO2 TENSION) 39 MMHG (35-45); PO2 (O2 TENSION) 58 MMHG (79-93); SAMPLE Arterial
[2017-03-08 06:45] LABS: BASOPHILS 0 %; EOSINOPHILS 0 %; HEMOGLOBIN 8.5 g/dL (12.0-16.0); IMMATURE GRANULOCYTES 0.3 %; IMMATURE GRANULOCYTES ABSOLUTE 0.03 10/3/uL (0.0-0.11); LYMPHOCYTES 5.9 %; LYMPHOCYTES ABSOLUTE 0.51 10/3/uL (0.67-4.30); MEAN CORPUS HGB CONC 32.8 g/dL (32.0-36.0); MEAN CORPUSCULAR HEMOGLOB 33.1 pg (26.0-34.0); MEAN CORPUSCULAR VOLUME 100.8 fL (80-100); MEAN PLATELET VOLUME 9.3 fL (9.2-13.0); MONOCYTES 3.8 %; MONOCYTES ABSOLUTE 0.33 10/3/uL (0.21-1.20); NEUTROPHILS ABSOLUTE 7.83 10/3/uL (2.02-8.40); PLATELET COUNT 348 10/3/uL (150-400); RBC DISTRIBUTION WIDTH 14.8 % (12.0-16.0); RED CELL COUNT 2.57 10/6/uL (4.0-5.6); WHITE BLOOD CELLS 8.7 10/3/uL (4.5-10.5)
[2017-03-08 06:47] LABS: HEMATOCRIT 25.9 % (36.0-48.0); MANUAL DIFF NO %
[2017-03-08 07:02] LABS: ALBUMIN 2.1 G/DL (3.5-5.0); BUN (BLOOD UREA NITROGEN) 81 MG/DL (6-23); CALCIUM, SERUM 7.7 MG/DL (8.5-10.4); CHLORIDE, SERUM 111 MMOL/L (96-112); CO2 (CARBON DIOXIDE) 21 MMOL/L (24-34); CREATININE 1.46 MG/DL (0.55-1.02); GFR AFRICAN AMERICAN 38 ML/MIN (>=60); GFR NON AFRICAN AMERICAN 33 ML/MIN (>=60); GLUCOSE, SERUM 174 MG/DL (60-99); PHOSPHORUS, SERUM 2.6 MG/DL (2.5-4.5); POTASSIUM, SERUM 3.3 MMOL/L (3.5-5.3); SODIUM, SERUM 145 MMOL/L (135-148)
[2017-03-08 12:01] LABS: PROCALCITONIN 1.05 ng/mL (<0.5)
[2017-03-08 19:30] LABS: ASCORBIC ACID (UR NOT ORDER) 20 (NEG); BILIRUBIN, URINE SMALL (NEG); KETONE, URINE TRACE MG/DL (NEG); LEUKOCYTE ESTERASE(NOT OR TRACE (NEG); WBC (NOT ORDERED) (RFLEX) 22 (0-5)
[2017-03-08 21:53] LABS: SODIUM, URINE < 5 MEQ/L
[2017-03-09 06:23] LABS: BASOPHILS 0.1 %; BASOPHILS ABSOLUTE 0.01 10/3/uL (0.0-0.16); EOSINOPHILS 0 %; HEMATOCRIT 31.6 % (36.0-48.0); HEMOGLOBIN 10.2 g/dL (12.0-16.0); IMMATURE GRANULOCYTES 0.2 %; IMMATURE GRANULOCYTES ABSOLUTE 0.02 10/3/uL (0.0-0.11); LYMPHOCYTES 5.2 %; LYMPHOCYTES ABSOLUTE 0.57 10/3/uL (0.67-4.30); MANUAL DIFF NO %; MEAN CORPUS HGB CONC 32.3 g/dL (32.0-36.0); MEAN CORPUSCULAR HEMOGLOB 32.9 pg (26.0-34.0); MEAN CORPUSCULAR VOLUME 101.9 fL (80-100); MEAN PLATELET VOLUME 9.3 fL (9.2-13.0); MONOCYTES 4.1 %; MONOCYTES ABSOLUTE 0.45 10/3/uL (0.21-1.20); NEUTROPHILS 90.4 %; NEUTROPHILS ABSOLUTE 9.83 10/3/uL (2.02-8.40); PLATELET COUNT 503 10/3/uL (150-400); RBC DISTRIBUTION WIDTH 15.2 % (12.0-16.0); WHITE BLOOD CELLS 10.9 10/3/uL (4.5-10.5)
[2017-03-09 06:32] LABS: ALBUMIN 1.9 G/DL (3.5-5.0); CALCIUM, SERUM 7.6 MG/DL (8.5-10.4); CHLORIDE, SERUM 117 MMOL/L (96-112); CO2 (CARBON DIOXIDE) 25 MMOL/L (24-34); CREATININE 1.27 MG/DL (0.55-1.02); GFR AFRICAN AMERICAN 46 ML/MIN (>=60); GFR NON AFRICAN AMERICAN 39 ML/MIN (>=60); GLUCOSE, SERUM 160 MG/DL (60-99); POTASSIUM, SERUM 4.3 MMOL/L (3.5-5.3); SODIUM, SERUM 150 MMOL/L (135-148)
[2017-03-09 06:33] LABS: BUN (BLOOD UREA NITROGEN) 94 MG/DL (6-23); PHOSPHORUS, SERUM 3.8 MG/DL (2.5-4.5)
[2017-03-09 08:24] LABS: ALLENS TEST Pos; BE (BASE EXCESS) -3.8 MEQ/L (0 +/- 2.5); CARBOXYHEMOGLOBIN 0.7 % (0-3); DEVICE VAPOTHERM 30L 60%; HEMOBLOGIN CONTENT 10.5 G/DL (12-16); INSTRUMENT SERIAL # 8083; METHEMOGLOBIN 0.3 % (0-3); O2 CONTENT 13.4 VOL% (18-24); OPERATOR ID 35859; PCO2 (CO2 TENSION) 58 MMHG (35-45); PO2 (O2 TENSION) 72 MMHG (79-93); SAMPLE Arterial; pH 7.24 (7.37-7.43)
== END 2017-03-10 11:02 | disposition expired | DRG 640 ==
LOC: CDU1 13:25 → 4SO 03-06 11:52 → 5SO 03-07 07:59
PROVIDERS: Colon & Rectal Surgery; Internal Medicine; Nurse Practitioner; Physician Assistant Medical
PROC: 5A09357 Assistance with Respiratory Ventilation, Less than 24 Consecutive Hours, Continuous Positive Airway Pressure (ICD-10-PCS; principal; 2017-03-08)
DX: E86.0 Dehydration (principal); J69.0 Pneumonitis due to inhalation of food and vomit; J96.21 Acute and chronic respiratory failure with hypoxia; N17.0 Acute kidney failure with tubular necrosis; B37.0 Candidal stomatitis; J47.1 Bronchiectasis with (acute) exacerbation; N39.0 Urinary tract infection, site not specified; N17.9 Acute kidney failure, unspecified; B95.2 Enterococcus as the cause of diseases classified elsewhere; G47.33 Obstructive sleep apnea (adult) (pediatric); I25.10 Atherosclerotic heart disease of native coronary artery without angina pectoris; K21.9 Gastro-esophageal reflux disease without esophagitis; K44.9 Diaphragmatic hernia without obstruction or gangrene; Z51.5 Encounter for palliative care; Z66 Do not resuscitate; Z93.3 Colostomy status; Z79.899 Other long term (current) drug therapy; Z95.1 Presence of aortocoronary bypass graft; Z92.3 Personal history of irradiation; Z85.038 Personal history of other malignant neoplasm of large intestine; Z92.21 Personal history of antineoplastic chemotherapy; Z79.82 Long term (current) use of aspirin; Z88.8 Allergy status to other drugs, medicaments and biological substances
CPT/HCPCS: 36600; 71010; 71020; 74000; 74022; 80048; 80053; 80069; 81001; 82570; 82805; 83735; 83880; 84100; 84132; 84145; 84300; 85025; 87070; 87077; 87086; 87186; 87205; 89190; 93005; 94640; 94660; 94667; 94668; 97110-GP; 97162-GP; A9270-GY; C9113; J2405; J2543; J2930; J3370; P9047